=== PATIENT | male | born 1955 | race Caucasian/White ===

== ENCOUNTER 2017-12-10 17:19 | Emergency (ER) | payer OTHER, SELFPAY ==
[2017-12-10 17:29] VITALS: BP 141/92; PULSE 85; RESP 18; TEMP 36.9; O2SAT 98; BMI 55.3
--- NOTE | 2017-12-10 17:39 | DI.RAD.S_ITS ---
PROCEDURE: XR FINGER RT MIN 2V INDICATIONS: saw injury to right thumb TECHNIQUE: AP hand, 2 views of the right first finger(s) acquired. COMPARISON: None. FINDINGS: Bones: No definite fractures in the right first digit at the area of trauma. There are degenerative changes in the first CMC and IP joints. Soft tissues: Soft tissue defect about the right first IP joint.. IMPRESSION: No definite fractures. Soft tissue defect at the right first IP joint area of trauma. First digit degenerative change. Dictated by: Foreign Myers M.D. on 12/10/2017 at 18:04 Approved by: Foreign Myers M.D. on 12/10/2017 at 18:06
--- NOTE | 2017-12-10 18:40 | PC.NURSE ---
rt 1st digit laceration from power saw, distal cap refill <2 sec, reports unable to extend digit, bleeding controlled
[2017-12-10] MEDS: TET,DIPH,PERTUSS(ACELL),VAC/PF 0.5 ML SYRINGE IM (18:58)
--- NOTE | 2017-12-10 18:59 | ED.UPPEXIN ---
HPI - Extremity Injury (Upper) General Chief Complaint: Extremity Injury, Upper Stated Complaint: LACERATION RT THUMB Time Seen by Provider: 12/10/17 18:34 Source: patient Mode of arrival: ambulatory Limitations: no limitations History of Present Illness HPI narrative: Patient presents to the emergency department for evaluation of a right thumb laceration suffered this evening after opening a can of tomatoes and being cut by the lid on the tip of his thumb. It has bled significantly but he denies numbness, tingling or weakness. He has full range of motion. Tetanus needs to be updated. He denies other injury. He is right-handed MD complaint: injury to: right and finger Onset (ago): minute(s) Other injuries: none Handedness: right Place: home Severity: mild Relieving factors: none Exacerbating factors: none Context: laceration Associated symptoms: denies other symptoms Related Data Home Medications Medication Instructions Recorded Confirmed indomethacin 25 mg PO BIDCC #0 10/27/11 Previous Rx's Medication Instructions Recorded cephalexin [Keflex] 500 mg PO QID 7 Days #28 cap 12/10/17 Allergies Allergy/AdvReac Type Severity Reaction Status Date / Time No Known Drug Allergies Allergy Verified 12/10/17 17:34 Review of Systems Review of Systems All systems reviewed & are unremarkable except as noted in HPI and below Constitutional Denies chills, Denies fever(s), Denies lethargy and Denies weakness Eyes Denies change in vision, Denies eye discharge, Denies irritation and Denies loss of vision ENT Ears, Nose, Mouth, and Throat: Denies change in voice, Denies neck pain and Denies sore throat Cardiovascular Denies chest pain, Denies irregular heart rhythm, Denies lightheadedness, Denies palpitations, Denies dyspnea, Denies dyspnea on exertion and Denies orthopnea Respiratory Denies cough, Denies dyspnea, Denies dyspnea on exertion and Denies wheezing Gastrointestinal Gastrointestinal: Denies abdominal pain, Denies change in bowel habits, Denies diarrhea, Denies nausea and Denies vomiting Genitourinary Denies hematuria, Denies flank pain, Denies urinary incontinence and Denies urinary urgency Musculoskeletal Denies neck pain Integumentary/Breasts Denies pruritus, Denies erythema, Denies rash and Denies wounds Comments: Laceration Neurologic Denies confusion, Denies loss of vision and Denies weakness Psychiatric Denies anxiety, Denies confusion, Denies depression, Denies homicidal ideation and Denies suicidal ideation Endocrine Denies palpitations Hematologic/Lymphatic Denies easy bruising Allergic/Immunologic Denies wheezing PFSH Social History Smoking Status: Never smoker Exam Narrative Exam Narrative: Pleasant 62-year-old male clutching his right thumb, applying pressure. Mild distress Initial Vital Signs Initial Vital Signs: Vital Signs Temperature 98.5 F 12/10/17 17:29 Pulse Rate 85 12/10/17 17:29 Respiratory Rate 18 12/10/17 17:29 Blood Pressure 141/92 H 12/10/17 17:29 Pulse Oximetry 98 12/10/17 17:29 Const General: cooperative and well developed Nutritional Appearance: well nourished Orientation: alert, awake, oriented x3 and not confused HENKY Head: normocephalic and atraumatic Ears: external ears normal and TM's normal bilaterally Nose: external nose normal and No nasal discharge Face and sinus: sinuses nontender, face symmetric, no sinus tenderness and No dry mucous membranes Mouth: oral mucosae normal and moist mucous membranes Teeth and gingiva: dentition normal Throat: tonsils normal and uvula midline Resp Effort & Inspection: normal respiratory effort, able to speak in complete sentences, no respiratory distress and no use of accessory muscles Auscultation: clear to auscultation bilaterally, no rales, no rhonchi and no wheezes GI Inspection: non-distended Palpation: soft, no hepatosplenomegaly, No guarding, No pulsatile mass and No tender Auscultation: normal bowel sounds Skin Trauma: laceration Extrem Right upper extremity: hand Details: normal ROM of fingers and laceration (1.5 cm angled laceration with active bleeding) Procedures Laceration Repair Laceration 1: Site: hand (Right thumb) Side (If applicable): right Size (cm): 1.5 Description: flap Depth: simple, single layer Local Anesthetic: lidocaine 1% and with bicarb Amount of anesthesia used (mL): 2 Pre-repair: wound explored and irrigated extensively Skin layer closed with: nylon Size (cm): 5-0 Number of sutures: 3 Technique: simple, interrupted Course Orders Ordered: ED Orders 12/10/17 17:39 XR finger RT min 2V Stat Discontinued Medications Diphtheria/Tetanus/Acell Pertussis (Adacel) 0.5 ml IM .ONCE ONE Stop: 12/10/17 18:54 Last Admin: 12/10/17 18:58 Dose: 0.5 ml Vital Signs - 8 hr 12/10/17 20:34 Temperature 101.0 F H Pulse Rate 86 Respiratory Rate 16 Blood Pressure 141/89 H Pulse Oximetry 96 Discharge Plan Departure Patient Disposition: Home, Self-Care Clinical Impression: Laceration of right thumb, Extensor tendon laceration of finger with open wound Discharge Date/Time: 12/10/17 20:35 Interventions: ED Discharge Assessment Last Done: 12/10/17 20:34 Instructions: DI for Laceration Repair Activity Restrictions/Additional Instructions: Call [facility] Orthopedic office in the morning. Tell them your seen in the emergency department and have a laceration to the extensor tendon of your right thumb. Left thumb no Dr. Florian spoke with Dr. Welch and he wants you to call the office for close follow up and tendon repair. Your prescription for Keflex has been electronically transmitted to [facility] in [place] is at your request Prescriptions: New cephalexin [Keflex] 500 mg capsule 500 mg PO QID 7 Days Qty: 28 RF: 0 No Action indomethacin 25 MG capsule 25 mg PO BIDCC Qty: 0 RF: 0 Referrals: Sae Garces MD [Primary Care Provider] - Jordan Welch MD [Physician] -
[2017-12-10 20:34] VITALS: BP 141/89; PULSE 86; RESP 16; TEMP 38.3; O2SAT 96
== END 2017-12-10 20:35 | disposition home or self-care (01) ==
PROVIDERS: Emergency Provider Emergency Medicine; Family Provider Family Medicine; PCP Family Medicine
DX: S61.011A Laceration without foreign body of right thumb without damage to nail, initial encounter (principal); W26.8XXA Contact with other sharp object(s), not elsewhere classified, initial encounter
CPT/HCPCS: 12001; 29130; 73140; 90471; 99282; 99283; 90715

== ENCOUNTER 2017-12-11 11:07 | Day surgery (SDC) | payer OTHER, SELFPAY ==
[2017-12-11] VITALS (7 sets, daily range): BP systolic 104–143; BP diastolic 71–91; PULSE 55–68; RESP 10–18; TEMP 35.9–36.3; O2SAT 96–100; BMI 25.2
--- NOTE | 2017-12-11 12:41 | PM.HP.1 ---
History of Present Illness Date Patient Seen: 12/11/17 Time Patient Seen: 12:41 Chief complaint: [id number] Narrative: 62-year-old left hand dominant male with a right thumb injury. He was using a circular saw when it kicked back and lacerated the dorsum of his right thumb yesterday evening. He was seen in the emergency room and found to have an extensor tendon injury and sent for follow-up. He is not having very much pain at all. He is unable to extend his thumb. No fever or chills. 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 Patient History Medical History Hypertension (Acute) Family & Social History Family History: Reviewed 12/11/17 by Jordan Welch MD Social History: household members spouse Tobacco & Substance use: Smoking Status Never smoker alcohol intake frequency 0-2 drinks per day Substance Use Type does not use Meds Home Medications Medication Instructions Recorded Confirmed Type cephalexin [Keflex] 500 mg PO QID 7 Days #28 cap 12/10/17 Rx losartan 100 mg PO DAILY 12/11/17 12/11/17 History Allergies Allergy/AdvReac Type Severity Reaction Status Date / Time No Known Drug Allergies Allergy Verified 12/10/17 17:34 Review of Systems Constitutional Constitutional: Denies fatigue Cardiovascular Cardiovascular: Denies chest pain Respiratory Respiratory: Denies cough Gastrointestinal Gastrointestinal: Denies abdominal pain Genitourinary Genitourinary: Denies difficulty urinating Psychiatric Psychiatric: Denies anxiety Endocrine Endocrine: Denies fatigue Exam Vital Signs (past 8 hours): Vital Signs - 8 hr 12/11/17 11:47 Temperature 96.7 F L Pulse Rate 55 L Respiratory Rate 16 Blood Pressure 138/89 H Pulse Oximetry 99 Pulse Oximetry 99 Oxygen Delivery Method Room Air Resp Auscultation: clear to auscultation bilaterally Cardio Rate: regular rate Rhythm: regular rhythm Extrem Other: Right thumb shows a 1 cm transverse laceration across the IP joint. There is also small 5 mm laceration along the radial aspect of the thumb pad. Intact sensation to the tip with good capillary refill. He is unable to actively extend his IP joint. No erythema or induration or drainage. Two loose stitches in right now. Assessment & Plan Plan: Assessment/Plan Narrative: Plan is for repair of his right thumb EHL. Without it, he will not be able to actively extend his right thumb. I explained the surgical technique to him as well as recovery. Risks and benefits of surgery were discussed including but not limited to medical risks with heart attacks, stroke, , infection, bleeding, scarring, injury to nerves with pain or numbness, tendon rupture, stiffness, lag, loss of function, need for revision surgery. He understands and we will go ahead with this today. Time Spent With Patient Time with patient: 25 - 35 minutes
[2017-12-11] MEDS: LACTATED RINGERS 1,000 ML 42 ML IV (12:43)
--- NOTE | 2017-12-11 12:48 | P.HP_ITS ---
History of Present Illness Date Patient Seen: 12/11/17 Time Patient Seen: 12:41 Chief complaint: [id number] Narrative: 62-year-old left hand dominant male with a right thumb injury. He was using a circular saw when it kicked back and lacerated the dorsum of his right thumb yesterday evening. He was seen in the emergency room and found to have an extensor tendon injury and sent for follow-up. He is not having very much pain at all. He is unable to extend his thumb. No fever or chills. 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 Patient History Medical History Hypertension (Acute) Family & Social History Family History: Reviewed 12/11/17 by Jordan Welch MD Social History: household members spouse Tobacco & Substance use: Smoking Status Never smoker alcohol intake frequency 0-2 drinks per day Substance Use Type does not use Meds Home Medications Medication Instructions Recorded Confirmed Type cephalexin [Keflex] 500 mg PO QID 7 Days #28 cap 12/10/17 Rx losartan 100 mg PO DAILY 12/11/17 12/11/17 History Allergies Allergy/AdvReac Type Severity Reaction Status Date / Time No Known Drug Allergies Allergy Verified 12/10/17 17:34 Review of Systems Constitutional Constitutional: Denies fatigue Cardiovascular Cardiovascular: Denies chest pain Respiratory Respiratory: Denies cough Gastrointestinal Gastrointestinal: Denies abdominal pain Genitourinary Genitourinary: Denies difficulty urinating Psychiatric Psychiatric: Denies anxiety Endocrine Endocrine: Denies fatigue Exam Vital Signs (past 8 hours): Vital Signs - 8 hr 3 12/11/17 11:47 Temperature 96.7 F L Pulse Rate 55 L Respiratory Rate 16 Blood Pressure 138/89 H Pulse Oximetry 99 Pulse Oximetry 99 Oxygen Delivery Method Room Air Resp Auscultation: clear to auscultation bilaterally Cardio Rate: regular rate Rhythm: regular rhythm Extrem Other: Right thumb shows a 1 cm transverse laceration across the IP joint. There is also small 5 mm laceration along the radial aspect of the thumb pad. Intact sensation to the tip with good capillary refill. He is unable to actively extend his IP joint. No erythema or induration or drainage. Two loose stitches in right now. Assessment & Plan Plan: Assessment/Plan Narrative: Plan is for repair of his right thumb EHL. Without it, he will not be able to actively extend his right thumb. I explained the surgical technique to him as well as recovery. Risks and benefits of surgery were discussed including but not limited to medical risks with heart attacks, stroke, , infection, bleeding, scarring, injury to nerves with pain or numbness, tendon rupture, stiffness, lag, loss of function, need for revision surgery. He understands and we will go ahead with this today. Time Spent With Patient Time with patient: 25 - 35 minutes
--- NOTE | 2017-12-11 12:48 | PM.PREOP ---
Pre-operative Note Interval Note Pre-op Check: History & Physical exam performed today
--- NOTE | 2017-12-11 13:39 | P.OP_ITS ---
Operative Date/Time/Diagnoses - Date of procedure: 12/11/17 Time of procedure: 14:46 Pre-op diagnosis: Right thumb EHL tendon laceration Post-op diagnosis: other (open Right thumb IP joint) Procedure & Clinicians Procedure: Right thumb EHL tendon repair R thumb IP joint washout Same procedure as scheduled: Yes Indications: 62-year-old male with a laceration of his extensor tendon on the thumb. This felt that he would benefit from surgical intervention. Risks and benefits of surgery were discussed and appropriate consents were obtained. Surgeon: Jordan Welch Click Yes if Unassisted: Yes Anesthesia Type: MAC +/- and Local Operative Notes Findings: none Closure Type: primary Specimen(s): none sent Procedure in detail: Patient was brought to the operating room and attention was turned to the well-marked right arm. Time-out was performed. Preoperative antibiotics were given. A [place] block was performed for anesthetic. The right arm was prepped and draped in standard sterile fashion. We opened up the transverse laceration and extended it up and down on the sides. The skin was retracted and the wound was examined. The obvious tendon laceration was identified. The laceration went right through to the joint and there were some bony fragments where the saw had cut them on the dorsum of the proximal phalanx. This was an open joint and was debrided and copiously irrigated. We cleaned up the edges of the jagged tendon. There was enough proximally to be able to repair. This was repaired with a modified Lyn stitch using 2 stitches of 3-0 Ethibond. A running paratenon stitch was also placed with 5-0 PDS. This placed the thumb in an extended position without excessive tension across the repair. The skin edges were then reapproximated. Sterile dressing was placed. He was placed in a extension aluminum splint. He was then brought to the recovery room without complications. Complications: none Condition: stable Disposition: PACU Plan for aftercare: Outpatient. Follow up in 1 week and start with occupational therapy for standard extensor tendon repair protocol. Maintain thumb in extended position and splint.
[2017-12-11] MEDS: CEFAZOLIN 2 GM/100 ML FROZ.PIGGY IV (13:41)
--- NOTE | 2017-12-11 14:22 | SUR.OPER ---
Prone on padded OR bed, head in foam head support, gel chest rolls, gel pad under knees, pillow under lower legs, toes free of pressure, left arm secured on padded arm board at <90 degrees abduction. right arm on hand table. Safety belt at thigh.
[2017-12-11] MEDS: OXYCODONE/ACETAMINOPHEN 5/325 TABLET 1 TAB PO (15:08)
== END 2017-12-11 15:50 | disposition home or self-care (01) ==
PROVIDERS: Family Provider Family Medicine; PCP Family Medicine; Visit Provider Orthopaedic Surgery
PROC: (CPT 11012; principal; 2017-12-11 12:30)
DX: S66.221A Laceration of extensor muscle, fascia and tendon of right thumb at wrist and hand level, initial encounter (principal); I10 Essential (primary) hypertension; W31.2XXA Contact with powered woodworking and forming machines, initial encounter
CPT/HCPCS: 11012; 26418; J0690; J2250; J2704; J3010

== ENCOUNTER → 2018-05-27 08:32 | Outpatient (CLI) | payer OTHER, SELFPAY ==
[2018-05-27 10:14] LABS: Albumin Globulin Ratio 1.9 (1.0-2.8); Alkaline Phosphatase 160 U/L (38-126); Aspartate Aminotransferase 70 IU/L (17-59); BUN Creatinine Ratio 19.1 (6-22); Bilirubin Total 1.3 mg/dL (0.2-1.3); Blood Urea Nitrogen 21 mg/dL (9-20); Calcium 9.8 mg/dL (8.4-10.2); Carbon Dioxide 25 mmol/L (22-32); Cholesterol 253 mg/dL (140-199); Estimated Glomerular Filt Rate > 60.0 mL/min (>60); Globulin 2.6 g/dL (1.7-4.1); Glucose 112 mg/dL (80-110); HDL Cholesterol 49 mg/dL (40-60); LDL Cholesterol Calculated 154 mg/dL (<100); Total Protein 7.6 g/dL (6.3-8.2); Triglycerides 248 mg/dL (35-150)
[2018-05-27 10:21] LABS: Alanine Aminotransferase < 6 IU/L (21-72); HEMOLYSIS 172 (0-50)
[2018-05-27 10:34] LABS: Chloride 103 mmol/L (98-107); Potassium 5.1 mmol/L (3.4-5.1); Sodium 141 mmol/L (137-145)
[2018-05-27 10:43] LABS: Prostate Specific Antigen Scrn 1.96 ng/mL (0.1-4.0)
== END ==
PROVIDERS: Family Provider Anesthesiology; PCP Family Medicine; Visit Provider Family Medicine
DX: E29.1 Testicular hypofunction (principal); E78.5 Hyperlipidemia, unspecified; R53.83 Other fatigue; Z12.5 Encounter for screening for malignant neoplasm of prostate
CPT/HCPCS: 36415; 80053; 80061; 84403; G0103

== ENCOUNTER → 2021-05-26 09:41 | Outpatient (CLI) | payer MEDICARE, OTHER, SELFPAY ==
[2021-05-26 17:09] LABS: Uric Acid 7.1 mg/dL (3.5-8.5)
== END ==
PROVIDERS: Family Provider Anesthesiology; PCP Family Medicine; Referring Provider Family Medicine; Visit Provider Family Medicine
DX: M10.9 Gout, unspecified (principal)
CPT/HCPCS: 36415; 84550

== ENCOUNTER 2021-12-26 11:28 | Inpatient (IN) | payer MEDICARE, OTHER, SELFPAY ==
[2021-12-26] VITALS (7 sets, daily range): BP systolic 140–184; BP diastolic 95–107; PULSE 58–66; RESP 16–18; TEMP 36.9–37.1; O2SAT 95–99; BMI 28.1
--- NOTE | 2021-12-26 11:42 | DI.CT.S_ITS ---
PROCEDURE: CT HEAD/BRAIN WO CON INDICATIONS: sent by optho, loss of L peripheral vision x 5 days TECHNIQUE: Noncontrast 4.5 mm thick angled axial sections acquired from the foramen magnum to the vertex, with coronal and sagittal reformats. For radiation dose reduction, the following was used: automated exposure control, adjustment of mA and/or kV according to patient size. COMPARISON: None. FINDINGS: Image quality: Excellent. CSF spaces: Basal cisterns are patent. No extra-axial fluid collections. The ventricles are symmetric in size and shape. Brain: No intracranial bleeds or masses. There is a subacute infarct within the right medial occipital lobe measuring roughly 45 mm anteroposterior by 40 mm transverse by 25 mm craniocaudal. There is cerebral volume loss for age, with resultant ventricular and sulcal prominence. There are periventricular and deep white matter chronic small vessel ischemic changes. There is intracranial internal carotid artery atherosclerosis. Skull and face: Calvarium and visualized facial bones appear intact, without suspicious lesions. Sinuses: Visualized sinuses and mastoids are clear. IMPRESSION: 1. Subacute right occipital lobe infarct. 2. No acute intracranial abnormality. Dictated by: Evelio Robles M.D. on 12/26/2021 at 12:11 Approved by: Evelio Robles M.D. on 12/26/2021 at 12:13
--- NOTE | 2021-12-26 12:13 | DI.MRI.S_ITS ---
PROCEDURE: MR HEAD/BRAIN WO/W CON INDICATIONS: peripheral visual loss x5days TECHNIQUE: Noncontrast axial T1 spin echo, axial T2 fast spin echo, sagittal and axial FLAIR, coronal T2 fast spin echo, axial gradient echo, axial diffusion and ADC through the brain. After the administration of contrast, axial and coronal and sagittal 3D VIBE or T1 spin echo with fat saturation through the brain. COMPARISON: [facility], CT, CT HEAD/BRAIN WO CON, 12/26/2021, 11:59. FINDINGS: There is a pattern of restricted diffusion indicating a late acute or early subacute right occipital lobe infarct with associated mild cytotoxic edema producing regional sulcal effacement but no significant mass effect otherwise. No additional restricted diffusion. No unexpected intracranial susceptibility or enhancement. The major intracranial vascular flow-related signal voids are maintained. There is a mildly dilated appearance of the right posterior cerebral artery vasculature likely hyperemic luxury reperfusion. There is no focal right MAIL DELIVERER occlusion identified, although the study was not tailored for angiographic evaluation. Paranasal sinuses and mastoid air cells are predominantly clear. Orbital structures normal. IMPRESSION: Late acute or early subacute right occipital lobe infarct. When clinically appropriate, a CT angiogram of the head neck would be advised to evaluate the cervical and intracranial arterial vasculature. Dictated by: Neo Woodson M.D. on 12/26/2021 at 13:31 Approved by: Neo Woodson M.D. on 12/26/2021 at 13:37
--- NOTE | 2021-12-26 13:06 | ED.NEUROSD ---
HPI - Neuro Symptoms/Deficit General Chief Complaint: Neuro Symptoms/Deficit Stated Complaint: Stroke work up- ref Dr Olsen Time Seen by Provider: 12/26/21 12:13 History of Present Illness HPI Narrative: 66-year-old retired [employer] with mild hyperlipidemia currently treated for high blood pressure presents from his ophthalmology office with complaints of left sided peripheral vision loss. He had been in [place] and was at a conference when he noticed that his vision seemed a bit off and he was unable to see to the side. After 3-4 days he was noticing some blurry vision in that eye. He did not have any dizziness, palpitation, chest pain, headache, orthopnea, dyspnea. No additional weakness or paresthesia. No nausea or vomiting. Over the ensuing 5 days he saw Ophthalmology, a retinal ophthalmology specialist and eventually was sent to the emergency department with concerns for stroke 5 days after symptoms started. He complains of mild left-sided headache, decreased vision on the left side and decreased peripheral field vision on the left side. Formal peripheral field testing reveals that is bilateral peripheral grant but patient does not notice the abnormality to the right. He has had no difficulty with swallowing, talking, eating or speech. On Anticoagulants: No Related Data Home Medications Medication Instructions Recorded Confirmed losartan 100 mg tablet 100 mg PO DAILY 12/11/17 12/27/21 Previous Rx's Medication Instructions Recorded hydrocodone 5 mg-acetaminophen 325 1 tab PO Q4H PRN pain #7 tabs 12/11/17 mg tablet ([place]) Allergies Allergy/AdvReac Type Severity Reaction Status Date / Time No Known Drug Allergies Allergy Verified 12/10/17 17:34 Review of Systems Review of Systems Narrative: Remainder of complete review of systems is otherwise unremarkable except for that included in the HPI. Hematologic/Lymphatic On Anticoagulants: No Patient History Medical History Hyperlipidemia Hypertension Stroke Social History household members: spouse Smoking Status: Never smoker alcohol intake: current Smoking Status: Never smoker alcohol intake frequency: 0-2 drinks per day Substance Use Type: does not use Exam Initial Vital Signs Initial Vital Signs: Vital Signs Temperature 98.7 F 12/26/21 11:38 Pulse Rate 66 12/26/21 11:38 Respiratory Rate 16 12/26/21 11:38 Blood Pressure 184/97 H 12/26/21 11:38 Pulse Oximetry 99 12/26/21 11:38 Oxygen Delivery Method 12/26/21 11:38 General: Healthy appearing, in no acute distress. Able to give a complete and coherent history. Well-nourished well-developed HEENT: Moist mucous membranes, normal sclera with reactive pupils, Neck: No JVD, supple Respiratory: Lungs are clear to auscultation, no wheezing no rales no rhonchi. Full and symmetrical air movement Cardiac: Regular rate and rhythm no murmurs no bruits Abdomen: Soft, nontender, good bowel tones, no flank pain Skin: Warm and dry, no rashes Neurologic: Grossly neurologically intact with no obvious asymmetries or abnormalities. Minor peripheral vision loss left side. NIH score =1 Extremities: No trauma, well perfused Psych: Cooperative, appropriate insight and affect Course Orders Ordered: Acetaminophen (Acetaminophen 325 Mg Tablet) 650 mg PO Q6HR [facility] Last Admin: 12/27/21 06:09 Dose: Not Given Documented By: Admin: 12/27/21 00:29 Dose: 650 mg Documented By: DONTA Al Hydrox/Mg Hydrox/Simethicone (Mag Hydrox/Alum/Simeth 30 Ml Udc) 30 ml PO Q6HR PRN PRN Reason: Dyspepsia Aspirin (Aspirin Ec 325 Mg Tablet) 325 mg PO DAILY [facility] Enoxaparin Sodium (Enoxaparin 40 Mg/0.4 Ml Syringe) 40 mg SUBCUT DAILY [facility] Losartan Potassium (Losartan 50 Mg Tablet) 100 mg PO DAILY [facility] Magnesium Hydroxide (Magnesium Hydroxide 30 Ml Udc) 30 ml PO DAILY PRN PRN Reason: Constipation Naloxone HCl (Naloxone 0.4 Mg/Ml Vial) 0.2 mg IV Q2MIN PRN PRN Reason: Opiate Reversal Discontinued Medications Aspirin (Aspirin 81 Mg Chew Tab) 324 mg PO NOW ONE Stop: 12/26/21 15:21 Last Admin: 12/26/21 15:30 Dose: 324 mg Documented By: SORIN Losartan Potassium (Losartan 50 Mg Tablet) 100 mg PO NOW ONE Stop: 12/26/21 18:30 Last Admin: 12/27/21 00:44 Dose: Not Given Documented By: DONTA Vital Signs Vital signs: Vital Signs - 8 hr 12/26/21 11:38 Temperature 98.7 F Pulse Rate 66 Respiratory Rate 16 Blood Pressure 184/97 H Pulse Oximetry 99 Oxygen Delivery Method Room Air MDM - Neuro Symptoms/Deficit Lab Data Result diagrams: 12/26/21 13:50 12/27/21 05:18 Labs: Lab Results 12/26/21 12/26/21 12/26/21 Range/Units 13:50 13:50 13:50 WBC 4.0 L (4.5-11.0) X10^3/uL RBC 4.80 (4.5-5.9) X10^6/uL Hgb 15.0 (13.5-17.5) g/dL Hct 43.5 (41-53) % MCV 90.6 (80-100) fL MCH 31.2 (26-34) PG MCHC 34.5 (30-36) % RDW 13.8 (11.6-14.8) % Plt Count 162 (150-400) X10^3/uL Neut % (Auto) 64.8 (50-75) % Lymph % (Auto) 23.0 L (25-40) % Mower % (Auto) 9.0 (3-14) % Eos % (Auto) 2.5 (2-4) % Baso % (Auto) 0.7 (0-2) % Neut # (Auto) 2600 (3023-4402) /uL Lymph # (Auto) 900 L (0771-3550) /uL Mower # (Auto) 400 (0-900) /uL Eos # (Auto) 100 (0-450) /uL Baso # (Auto) 0 (0-100) /uL PT 10.3 (10.1-12.7) SECONDS INR 0.9 (0.9-1.3) APTT 28 (26.4-36.2) SECONDS Sodium 140 (137-145) mmol/L Potassium 4.3 (3.4-5.1) mmol/L Chloride 105 (98-107) mmol/L Carbon Dioxide 28 (22-32) mmol/L BUN 17 (9-20) mg/dL Creatinine 1.19 (0.66-1.25) mg/dL Estimated GFR > 60 (>60) mL/min BUN/Creatinine Ratio 14.3 (6-22) Glucose 114 H (80-110) mg/dL Hemoglobin A1c (4.0-6.0) % Calcium 9.2 (8.4-10.2) mg/dL Magnesium 2.1 (1.6-2.3) mg/dL Total Bilirubin 0.8 (0.2-1.3) mg/dL AST 35 (17-59) IU/L ALT 38 (<50) IU/L Alkaline Phosphatase 49 (38-126) U/L Total Creatine Kinase 114 (55-170) U/L CK-MB (CK-2) 1.93 (<2.37) ng/mL CK-MB (CK-2) Rel Index 1.7 (1.5-5.0) % Troponin I < 0.012 (0.01-0.034) ng/mL Total Protein 7.5 (6.3-8.2) g/dL Albumin 4.7 (3.5-5.0) g/dL Globulin 2.8 (1.7-4.1) g/dL Albumin/Globulin Ratio 1.7 (1.0-2.8) Triglycerides (35-150) mg/dL Cholesterol (140-199) mg/dL LDL Cholesterol, Calc (<100) mg/dL HDL Cholesterol (40-60) mg/dL 12/26/21 12/26/21 Range/Units 13:50 13:50 WBC (4.5-11.0) X10^3/uL RBC (4.5-5.9) X10^6/uL Hgb (13.5-17.5) g/dL Hct (41-53) % MCV (80-100) fL MCH (26-34) PG MCHC (30-36) % RDW (11.6-14.8) % Plt Count (150-400) X10^3/uL Neut % (Auto) (50-75) % Lymph % (Auto) (25-40) % Mower % (Auto) (3-14) % Eos % (Auto) (2-4) % Baso % (Auto) (0-2) % Neut # (Auto) (9949-0148) /uL Lymph # (Auto) (9801-0330) /uL Mower # (Auto) (0-900) /uL Eos # (Auto) (0-450) /uL Baso # (Auto) (0-100) /uL PT (10.1-12.7) SECONDS INR (0.9-1.3) APTT (26.4-36.2) SECONDS Sodium (137-145) mmol/L Potassium (3.4-5.1) mmol/L Chloride (98-107) mmol/L Carbon Dioxide (22-32) mmol/L BUN (9-20) mg/dL Creatinine (0.66-1.25) mg/dL Estimated GFR (>60) mL/min BUN/Creatinine Ratio (6-22) Glucose (80-110) mg/dL Hemoglobin A1c 7.4 H (4.0-6.0) % Calcium (8.4-10.2) mg/dL Magnesium (1.6-2.3) mg/dL Total Bilirubin (0.2-1.3) mg/dL AST (17-59) IU/L ALT (<50) IU/L Alkaline Phosphatase (38-126) U/L Total Creatine Kinase (55-170) U/L CK-MB (CK-2) (<2.37) ng/mL CK-MB (CK-2) Rel Index (1.5-5.0) % Troponin I (0.01-0.034) ng/mL Total Protein (6.3-8.2) g/dL Albumin (3.5-5.0) g/dL Globulin (1.7-4.1) g/dL Albumin/Globulin Ratio (1.0-2.8) Triglycerides 216 H (35-150) mg/dL Cholesterol 284 H (140-199) mg/dL LDL Cholesterol, Calc 198 H (<100) mg/dL HDL Cholesterol 43 (40-60) mg/dL Imaging Data MRI brain: Radiologist's Impression: FINDINGS:? ? There is a pattern of restricted diffusion indicating a late acute or early subacute right occipital lobe infarct with associated mild cytotoxic edema producing regional sulcal effacement but no significant mass effect otherwise.? No additional restricted diffusion.? No unexpected intracranial susceptibility or enhancement. ? The major intracranial vascular flow-related signal voids are maintained.? There is a mildly dilated appearance of the right posterior cerebral artery vasculature likely hyperemic luxury reperfusion.? There is no focal right CASE MANAGEMENT DIRECTOR occlusion identified, although the study was not tailored for angiographic evaluation. ? Paranasal sinuses and mastoid air cells are predominantly clear.? Orbital structures normal. ? IMPRESSION:? Late acute or early subacute right occipital lobe infarct.? When clinically appropriate, a CT angiogram of the head neck would be advised to evaluate the cervical and intracranial arterial vasculature.? ? Dictated by: Neo Woodson M.D. on 12/26/2021 at 13:31? ?? CT scan - head: Radiologist's Impression: FINDINGS:? Image quality:? Excellent.? ? CSF spaces:? Basal cisterns are patent.? No extra-axial fluid collections.? The ventricles are symmetric in size and shape.? ? Brain:? No intracranial bleeds or masses.? There is a subacute infarct within the right medial occipital lobe measuring roughly 45 mm anteroposterior by 40 mm transverse by 25 mm craniocaudal.? There is cerebral volume loss for age, with resultant ventricular and sulcal prominence.? There are periventricular and deep white matter chronic small vessel ischemic changes.? There is intracranial internal carotid artery atherosclerosis.? ? Skull and face:? Calvarium and visualized facial bones appear intact, without suspicious lesions.? ? Sinuses:? Visualized sinuses and mastoids are clear.? ? IMPRESSION:? 1. Subacute right occipital lobe infarct. 2. No acute intracranial abnormality.? ? ? Dictated by: Evelio Robles M.D. on 12/26/2021 at 12:11? ?? CT angiogram head neck: Radiologist's Impression: FINDINGS:? ? HEAD CT ANGIOGRAPHY:? Anterior circulation:? Atherosclerotic plaque and calcification in the carotid siphons without hemodynamically significant stenosis.? Normal branch configuration of the anterior and middle cerebral arteries.? No branch occlusion or hemodynamically significant in the anterior or middle cerebral arteries. ? Posterior circulation:? Atherosclerotic plaque and calcification are present in the V4 branches bilaterally.? There is no focal hemodynamically significant stenosis.? Cerebellar arteries opacify normally. ? NECK CT ANGIOGRAPHY:? Carotid system:? The great vessels demonstrate a conventional anatomy as they arise from the aortic arch.? The origins of the common carotid arteries appear patent.? The common carotid arteries demonstrate normal caliber and courses.? The bifurcation regions are both widely patent.? The internal carotid arteries demonstrate normal calibers and courses. ? Posterior circulation:? The origins of the vertebral arteries both appear widely patent.? The more superior extracranial portions of both vertebral arteries also demonstrate normal courses and calibers.? They join to form a normal appearing basilar artery.? No high-grade narrowing of the right posterior cerebral artery beginning at the origin and persisting through the P2 segment.? There is delayed and diminished opacification of the distal P3 and P4 branches.? Posterior communicating arteries are patent. ? Soft tissues:? Visualized neck soft tissues demonstrate no suspicious abnormalities.? ? Bones:? No suspicious bony lesions.? Visualized cervical spine appears normally aligned.? IMPRESSION:? ? High-grade stenosis of the right P1 and P2 segments with diminished and delayed opacification in most of the right CASE MANAGEMENT DIRECTOR territory. ? Mild multifocal atherosclerotic narrowing of the bilateral V4 segments. ? Mild atherosclerotic calcifications in the carotid bifurcations without hemodynamically significant stenosis. ? Any quantitative measurements of stenosis were performed using NASCET criteria.? ? ? Dictated by: Neo Woodson M.D. on 12/26/2021 at 16:03? ?? 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 scan and MRI for stroke. Five days after initial symptoms, he is not a tPA candidate CT and MRI show late acute or early subacute right occipital lobe infarct. CTA shows high-grade stenosis of the right P1 and P2 segments with diminished and delayed opacification and most of the right CASE MANAGEMENT DIRECTOR territory. 630pm Telestroke consult. Dr Frederick. No DI intervetion at this time with primary issue being intracranial atherosclerosis, but not a heavy burder Recommends: ASA 325 daily High intensity statin, atorvastatin 80 Echo with bubble study goal BP trend down to less 130/80 over the next several days. check a1c Care is reviewed with Dr Shelby Stroke Core Measures Exclusion Criteria TPA in CVA: Symptom Onset >3 or 4.5 Hours Discharge Plan Departure Patient Disposition: Admitted As Inpatient Clinical Impression: Cerebrovascular accident, Hypertension Admit Date/Time: 12/26/21 13:51 Admit Provider: Chandana Shelby
[2021-12-26 13:56] LABS: Add Manual Diff / Slide Review NO; Basophils Absolute Auto 0 /uL (0-100); Basophils Percent Auto 0.7 % (0-2); Eosinophils Absolute Auto 100 /uL (0-450); Eosinophils Percent Auto 2.5 % (2-4); Hematocrit 43.5 % (41-53); Lymphocytes Absolute Auto 900 /uL (1100-4500); Mean Corpuscular HGB Conc 34.5 % (30-36); Mean Corpuscular Hemoglobin 31.2 PG (26-34); Mean Corpuscular Volume 90.6 fL (80-100); Monocytes Absolute Auto 400 /uL (0-900); Neutrophils Absolute Auto 2600 /uL (1500-7000); Neutrophils Percent Auto 64.8 % (50-75); Platelet Count 162 X10^3/uL (150-400); Red Cell Distribution Width 13.8 % (11.6-14.8)
[2021-12-26 14:05] LABS: INR 0.9 (0.9-1.3); Prothrombin Time 10.3 SECONDS (10.1-12.7)
[2021-12-26 14:08] LABS: PTT Partial Thromboplastin Tim 28 SECONDS (26.4-36.2)
[2021-12-26 14:10] LABS: Alanine Aminotransferase 38 IU/L (<50); Albumin 4.7 g/dL (3.5-5.0); Albumin Globulin Ratio 1.7 (1.0-2.8); Alkaline Phosphatase 49 U/L (38-126); Aspartate Aminotransferase 35 IU/L (17-59); BUN Creatinine Ratio 14.3 (6-22); Bilirubin Total 0.8 mg/dL (0.2-1.3); Blood Urea Nitrogen 17 mg/dL (9-20); Calcium 9.2 mg/dL (8.4-10.2); Carbon Dioxide 28 mmol/L (22-32); Chloride 105 mmol/L (98-107); Creatine Kinase 114 U/L (55-170); Estimated Glomerular Filt Rate > 60 mL/min (>60); Globulin 2.8 g/dL (1.7-4.1); Glucose 114 mg/dL (80-110); Magnesium 2.1 mg/dL (1.6-2.3); Potassium 4.3 mmol/L (3.4-5.1); Sodium 140 mmol/L (137-145); Total Protein 7.5 g/dL (6.3-8.2)
[2021-12-26 14:22] LABS: Troponin I < 0.012 ng/mL (0.01-0.034)
[2021-12-26 14:25] LABS: CKMB % Relative Index 1.7 % (1.5-5.0); Creatine Kinase MB 1.93 ng/mL (<2.37); HEMOLYSIS 27 (0-50)
[2021-12-26 14:30] LABS: COVID19 -Nasal RAPID Negative (Negative)
--- NOTE | 2021-12-26 14:54 | DI.CT.S_ITS ---
PROCEDURE: CT ANGIO HEAD AND NECK INDICATIONS: stroke TECHNIQUE: After the administration of intravenous contrast, 1 mm thick sections acquired from the aortic arch through the [place] of [place]. Post-contrast 4.5 mm thick sections then re-acquired from the foramen magnum to the vertex. 3-dimensional uenbkrp-xmrjlipmu-etvemaqwjz (MIP) and/or volume rendering reformats were acquired of the central intracranial vasculature and neck separately. For radiation dose reduction, the following was used: automated exposure control, adjustment of mA and/or kV according to patient size. COMPARISON: [facility], , MR HEAD/BRAIN WO/W CON, 12/26/2021, 12:27. FINDINGS: HEAD CT ANGIOGRAPHY: Anterior circulation: Atherosclerotic plaque and calcification in the carotid siphons without hemodynamically significant stenosis. Normal branch configuration of the anterior and middle cerebral arteries. No branch occlusion or hemodynamically significant in the anterior or middle cerebral arteries. Posterior circulation: Atherosclerotic plaque and calcification are present in the V4 branches bilaterally. There is no focal hemodynamically significant stenosis. Cerebellar arteries opacify normally. NECK CT ANGIOGRAPHY: Carotid system: The great vessels demonstrate a conventional anatomy as they arise from the aortic arch. The origins of the common carotid arteries appear patent. The common carotid arteries demonstrate normal caliber and courses. The bifurcation regions are both widely patent. The internal carotid arteries demonstrate normal calibers and courses. Posterior circulation: The origins of the vertebral arteries both appear widely patent. The more superior extracranial portions of both vertebral arteries also demonstrate normal courses and calibers. They join to form a normal appearing basilar artery. No high-grade narrowing of the right posterior cerebral artery beginning at the origin and persisting through the P2 segment. There is delayed and diminished opacification of the distal P3 and P4 branches. Posterior communicating arteries are patent. Soft tissues: Visualized neck soft tissues demonstrate no suspicious abnormalities. Bones: No suspicious bony lesions. Visualized cervical spine appears normally aligned. IMPRESSION: High-grade stenosis of the right P1 and P2 segments with diminished and delayed opacification in most of the right LINE ANALYST territory. Mild multifocal atherosclerotic narrowing of the bilateral V4 segments. Mild atherosclerotic calcifications in the carotid bifurcations without hemodynamically significant stenosis. Any quantitative measurements of stenosis were performed using NASCET criteria. Dictated by: Neo Woodson M.D. on 12/26/2021 at 16:03 Approved by: Neo Woodson M.D. on 12/26/2021 at 16:10
[2021-12-26 15:29] LABS: Appearance Urine UA CLEAR; Bilirubin Urine UA NEGATIVE (NEGATIVE); Color Urine UA YELLOW; Glucose Urine UA NEGATIVE (Negative); Ketones Urine UA NEGATIVE (NEGATIVE); Leukocyte Esterase Urine UA TRACE (NEGATIVE); Nitrite Urine UA NEGATIVE (Negative); Occult Blood Urine UA NEGATIVE (Negative); Protein Urine UA TRACE (Negative); Specific Gravity Urine UA 1.015 (1.000-1.035); Urobilinogen Urine UA 0.2 E.U./dL (0.2)
[2021-12-26] MEDS: ASPIRIN 81 MG CHEW TAB 324 MG PO (15:30)
[2021-12-26 15:34] LABS: UR Morphine/Opiate cutoff 300 Negative (Negative); Ur Creatinine Normal (Normal); Ur Specific Gravity Normal (Normal); Urine Amphetamines Negative (Negative); Urine Barbiturates Negative (Negative); Urine Benzodiazepines Negative (Negative); Urine Cocaine Negative (Negative); Urine MDMA Negative (Negative); Urine Methadone Negative (Negative); Urine Methamphetamines Negative (Negative); Urine Oxycodone Negative (Negative); Urine Phencyclidine Negative (Negative); Urine Tetrahydrocannabinol Negative (Negative); Urine Tricyclic Antidepressant Negative (Negative); Urine pH Normal (Normal)
[2021-12-26 15:40] LABS: Bacteria Urine None Seen; Culture Indicated Urine Cult Not Indicated; RBC Urine None Seen (0-5/HPF); Squamous Epithelial Cell Urine None Seen (0-5/HPF); WBC Urine 0-1/HPF (0-5/HPF)
[2021-12-26 18:55] LABS: Cholesterol 284 mg/dL (140-199); HDL Cholesterol 43 mg/dL (40-60); LDL Cholesterol Calculated 198 mg/dL (<100); Triglycerides 216 mg/dL (35-150)
[2021-12-26 19:00] LABS: Hemoglobin A1C% w Est Avg Glu 7.4 % (4.0-6.0)
--- NOTE | 2021-12-26 19:50 | PM.HP.1 ---
History of Present Illness History of Present Illness Date Patient Seen: 12/26/21 Time Patient Seen: 19:50 Date of Onset of Symptoms: 12/21/21 Chief complaint: Stroke work up- ref Dr Olsen Narrative: Patient is a 66-year-old patient of Dr. Mccrary who presents with decreased vision left eye. Patient has a history of hypertension but otherwise unremarkable past medical history. Apparently he was in [place] visiting his new grand son and noticed that he was dizzy and lightheaded. He went out of the meeting he was in and sat down and it passed. He had no headaches or chest pain or palpitations or other changes. Patient noticed over the course of the next few hours that the left upper outer area of his vision was different. He does could sees well. But did not think much of it at that time. He felt well. Continued to do well and then was seen by his trimming operator partner who told whom there is thing looked okay did not appear to be acute and then was sent to Dr. Olsen who saw him today was worried about a stroke referred to the emergency room. Patient is otherwise had blood pressure control in the 130-140 over 80-90. He has had no palpitations. He has had a slight headache feels like it is like my I will not completely focus in he feels like it has that kind of a headache but otherwise has been feeling well. No other changes. Past medical history significant mostly for hypertension. Hyperlipidemia. Patient was on cholesterol medicine in the past and it bothered his knees so he quit it. Past surgical history negative. Social history lives with . 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 Habits no smoke occasionally alcohol. Family history. Dad bleeding ulcer and some type of congestive heart failure, mom early of unknown cause 47 years of age. Five siblings all healthy except for 1 with brain injury at . Patient History Medical History Hyperlipidemia Hypertension Stroke Family & Social History Social History: household members spouse Safety & Behavioral: Feels Safe in Current Yes Environment Been Physically Hurt or No Threatened By a Person Tobacco & Substance use: Smoking Status Never smoker alcohol intake frequency 0-2 drinks per day Substance Use Type does not use Meds Home Medications and Allergies Home Medications Medication Instructions Recorded Confirmed Type hydrocodone 5 mg-acetaminophen 325 1 tab PO Q4H PRN pain #7 tabs 12/11/17 Rx mg tablet ([place]) losartan 100 mg tablet 100 mg PO DAILY 12/11/17 12/11/17 History Allergies Allergy/AdvReac Type Severity Reaction Status Date / Time No Known Drug Allergies Allergy Verified 12/10/17 17:34 Exam Vital Signs (past 8 hours): - 12/26/21 14:34 12/26/21 14:34 12/26/21 14:34 Temperature 98.4 F Pulse Rate 62 64 Respiratory Rate 18 Blood Pressure 174/97 H 174/97 H Pulse Oximetry 97 97 Oxygen Delivery Method Room Air 12/26/21 14:37 12/26/21 15:04 12/26/21 16:00 Temperature Pulse Rate 63 65 Respiratory Rate Blood Pressure 179/107 H Pulse Oximetry 96 97 Oxygen Delivery Method 12/26/21 16:30 Temperature Pulse Rate 58 L Respiratory Rate Blood Pressure Pulse Oximetry 95 Oxygen Delivery Method Oxygen Delivery Method Room Air Narrative Exam Narrative: Alert middle-aged male in no acute distress HEENT exam is unremarkable neck supple without adenopathy JVD or bruits. Lungs are clear heart regular rate and rhythm abdomen is soft positive bowel sounds nontender. Extremities without cyanosis clubbing edema. Neurologic exam is completely normal cranial nerves motor 5/5 reflex 2+ and symmetric sensation intact. He does have a visual defect in left outer area no other changes Objective Labs Result Diagrams: 12/26/21 13:50 12/26/21 13:50 Labs: Laboratory Results - last 24 hr 12/26/21 12/26/21 12/26/21 13:50 13:50 13:50 WBC 4.0 L RBC 4.80 Hgb 15.0 Hct 43.5 MCV 90.6 MCH 31.2 MCHC 34.5 RDW 13.8 Plt Count 162 Neut % (Auto) 64.8 Lymph % (Auto) 23.0 L [place] % (Auto) 9.0 Eos % (Auto) 2.5 Baso % (Auto) 0.7 Neut # (Auto) 2600 Lymph # (Auto) 900 L [place] # (Auto) 400 Eos # (Auto) 100 Baso # (Auto) 0 PT 10.3 INR 0.9 APTT 28 Sodium 140 Potassium 4.3 Chloride 105 Carbon Dioxide 28 BUN 17 Creatinine 1.19 Estimated GFR > 60 BUN/Creatinine Ratio 14.3 Glucose 114 H Hemoglobin A1c Calcium 9.2 Magnesium 2.1 Total Bilirubin 0.8 AST 35 ALT 38 Alkaline Phosphatase 49 Total Creatine Kinase 114 CK-MB (CK-2) 1.93 CK-MB (CK-2) Rel Index 1.7 Troponin I < 0.012 Total Protein 7.5 Albumin 4.7 Globulin 2.8 Albumin/Globulin Ratio 1.7 Triglycerides Cholesterol LDL Cholesterol, Calc HDL Cholesterol Urine Color Urine Appearance Urine pH Ur Specific [place] Urine Protein Urine Glucose (UA) Urine Ketones Urine Occult Blood Urine Nitrate Urine Bilirubin Urine Urobilinogen Ur Leukocyte Esterase Urine RBC Urine WBC Ur Squamous Epith Cells Urine Bacteria Ur Culture Indicated? U Opiates 300ng/mL cut Ur Oxycodone Screen Urine Methadone Screen Ur Barbiturates Screen U Tricyclic Antidepress Ur Phencyclidine Scrn Ur Amphetamines Screen U Methamphetamines Scrn Ur MDMA Scrn (Ecstasy) U Benzodiazepines Scrn Urine Cocaine Screen U Marijuana (THC) Screen SARS-CoV-2 (PCR) 12/26/21 12/26/21 12/26/21 13:50 13:50 14:03 WBC RBC Hgb Hct MCV MCH MCHC RDW Plt Count Neut % (Auto) Lymph % (Auto) [place] % (Auto) Eos % (Auto) Baso % (Auto) Neut # (Auto) Lymph # (Auto) [place] # (Auto) Eos # (Auto) Baso # (Auto) PT INR APTT Sodium Potassium Chloride Carbon Dioxide BUN Creatinine Estimated GFR BUN/Creatinine Ratio Glucose Hemoglobin A1c 7.4 H Calcium Magnesium Total Bilirubin AST ALT Alkaline Phosphatase Total Creatine Kinase CK-MB (CK-2) CK-MB (CK-2) Rel Index Troponin I Total Protein Albumin Globulin Albumin/Globulin Ratio Triglycerides 216 H Cholesterol 284 H LDL Cholesterol, Calc 198 H HDL Cholesterol 43 Urine Color Urine Appearance Urine pH Ur Specific [place] Urine Protein Urine Glucose (UA) Urine Ketones Urine Occult Blood Urine Nitrate Urine Bilirubin Urine Urobilinogen Ur Leukocyte Esterase Urine RBC Urine WBC Ur Squamous Epith Cells Urine Bacteria Ur Culture Indicated? U Opiates 300ng/mL cut Ur Oxycodone Screen Urine Methadone Screen Ur Barbiturates Screen U Tricyclic Antidepress Ur Phencyclidine Scrn Ur Amphetamines Screen U Methamphetamines Scrn Ur MDMA Scrn (Ecstasy) U Benzodiazepines Scrn Urine Cocaine Screen U Marijuana (THC) Screen SARS-CoV-2 (PCR) Negative 12/26/21 12/26/21 14:55 14:55 WBC RBC Hgb Hct MCV MCH MCHC RDW Plt Count Neut % (Auto) Lymph % (Auto) [place] % (Auto) Eos % (Auto) Baso % (Auto) Neut # (Auto) Lymph # (Auto) [place] # (Auto) Eos # (Auto) Baso # (Auto) PT INR APTT Sodium Potassium Chloride Carbon Dioxide BUN Creatinine Estimated GFR BUN/Creatinine Ratio Glucose Hemoglobin A1c Calcium Magnesium Total Bilirubin AST ALT Alkaline Phosphatase Total Creatine Kinase CK-MB (CK-2) CK-MB (CK-2) Rel Index Troponin I Total Protein Albumin Globulin Albumin/Globulin Ratio Triglycerides Cholesterol LDL Cholesterol, Calc HDL Cholesterol Urine Color Yellow Urine Appearance Clear Urine pH 6.0 Ur Specific [place] 1.015 Urine Protein Trace H Urine Glucose (UA) Negative Urine Ketones Negative Urine Occult Blood Negative Urine Nitrate Negative Urine Bilirubin Negative Urine Urobilinogen 0.2 Ur Leukocyte Esterase Trace H Urine RBC None seen Urine WBC 0-1/hpf Ur Squamous Epith Cells None seen Urine Bacteria None seen Ur Culture Indicated? Cult not indicated U Opiates 300ng/mL cut Negative Ur Oxycodone Screen Negative Urine Methadone Screen Negative Ur Barbiturates Screen Negative U Tricyclic Antidepress Negative Ur Phencyclidine Scrn Negative Ur Amphetamines Screen Negative U Methamphetamines Scrn Negative Ur MDMA Scrn (Ecstasy) Negative U Benzodiazepines Scrn Negative Urine Cocaine Screen Negative U Marijuana (THC) Screen Negative SARS-CoV-2 (PCR) Assessment & Plan Assessment & Plan narrative: CVA. Discussed with the emergency room the discussed with tele stroke. Does not believe there is any definitive intervention at this time. Recommended aspirin which we will began high-intensity statin which will need to figure out which drug you had complications with and then proceed from there. Echo will continue to watch his blood pressure checked his hemoglobin A1c and recheck after that. He appears to be stable and or 5 days out. Will continue tele Hypertension. Actually blood pressure not too bad. Patient's numbers at home have been pretty good I do not think that is a major issue will continue usual meds but not make any changes until we follow. Hyperlipidemia will need to start statins but will follow. GI prophylaxis not needed DVT prophylaxis will place on Lovenox. Code status full. Disposition. Hope will be discharged in the next 24-48 hours depending on findings. 40 minutes spent with patient reviewing chart discussing with ER doctor. Time Spent With Patient Critical Care time: I spent a total of [] minutes of critical care time on this patient's care today; this time is exclusive of procedural time.
--- NOTE | 2021-12-26 19:56 | DI.ECHO.S_ITS ---
[facility]---------+ [facility] +---------+ : : [address] [address] : : : : [id number] : : : : Phone: [phone]+ Echocardiogram Report + + :Name: DAO NOVA Study Date: 12/27/2021 Height: 68 in : :[facility] ReadingLocation: Weight: 185 lb : : Gender: Male BSA: 2.0 m2 : :: 1955 Age: 66 yrs BP: 140/95 mmHg: :Reason For Study: STROKE : :Ordering Physician: HAFSA, : :ROOSEVELT Performed By: Adelia Chambers : :Referring: ROOSEVELT PEREYRA : + + Interpretation Summary The patient was in normal sinus rhythm during the exam. The left ventricle is normal in size and wall thickness. There is no obvious LV thrombus. The ejection fraction is estimated to be 60-65%. The right ventricle is normal in size and function. There is no Doppler evidence for an interatrial shunt. Injection of contrast documented no interatrial shunt. No significant valvular pathology seen. The IVC is of normal diameter and collapses greater than 50% with a sniff. This suggests a low right atrial pressure of 3 mm Hg. Procedure: A two-dimensional transthoracic echocardiogram with color flow and Doppler was performed. The study quality was technically adequate. A saline contrast injection was performed to assess for cardiac shunting. The injection was performed through an intravenous line in the left arm. There is no prior echocardiogram noted for this patient. The patient was in sinus bradycardia with heart rates between 59-65 bpm during the exam. The patient was in normal sinus rhythm during the exam. Left Ventricle: The left ventricle is normal in size and wall thickness. There is no thrombus. The ejection fraction is estimated to be 60-65%. There are no focal wall motion abnormalities. Diastolic parameters suggest a relaxation abnormality of the left ventricle, consistent with probable normal filling pressures. Right Ventricle: The right ventricle is normal in size and function. Atria: The left atrial size is normal. Right atrial size is normal. There is no Doppler evidence for an interatrial shunt. Injection of contrast documented no interatrial shunt. Mitral Valve: There is mild mitral annular calcification. There is trace mitral regurgitation. Aortic Valve: The aortic valve is trileaflet. The aortic valve opens well. There is no aortic valve stenosis. No aortic regurgitation is present. Tricuspid Valve: The tricuspid valve is normal in structure and function. There is trace tricuspid regurgitation. Pulmonic Valve: The pulmonic valve leaflets are thin and pliable; valve motion is normal. There is trace pulmonic regurgitation. Great Vessels: The aortic root is normal size. The dimensions of the ascending aorta are normal. The IVC is of normal diameter and collapses greater than 50% with a sniff. This suggests a low right atrial pressure of 3 mm Hg. Pericardium/ Pleura There is no pericardial effusion. There is no pleural effusion. MMode/2D Measurements & Calculations LVIDd: 4.5 cm LVOT diam: 2.2 cm LVIDs: 3.1 cm Ao root diam: 3.4 cm FS: 30.7 % asc Aorta Diam: 3.3 cm IVSd: 0.82 cm Ao Arch Diam (Prox Trans): 3.2 cm LVPWd: 0.77 cm LV dhaliwal. diameter/BSA (cm/m^2): 2.3 LV sys. diameter/BSA (cm/m^2): 1.6 LA A2 area: 19.6 cm2 RA long axis: 4.7 cm LA A4 area: 16.5 cm2 RA area: 14.0 cm2 LA length (vol): 5.2 cm RA vol: 35.3 ml LA vol: 52.5 ml RA : 17.9 ml/m2 LA vol index: 26.6 ml/m2 IVC diam: 1.4 cm RVD1 (basal): 2.8 cm RVD2 (mid): 2.8 cm TAPSE: 1.6 cm Doppler Measurements & Calculations Ao V2 max: 118.1 cm/sec LVOT Max Willem: 82.0 cm/sec Ao V2 mean: 79.4 cm/sec LV V1 max P.7 mmHg Ao max P.6 mmHg LV V1 VTI: 17.1 cm Ao mean P.9 mmHg SONYA(I,D): 2.5 cm2 Ao V2 VTI: 24.8 cm SONYA(V,D): 2.6 cm2 sev ratio: 0.69 SONYA indexed to BSA (cm^2/m^2): 1.3 MV E max willem: 47.5 cm/sec PA V2 max: 124.7 cm/sec MV A max willem: 60.9 cm/sec PA V2 mean: 80.3 cm/sec MV E/A: 0.78 PA mean P.0 mmHg Med Peak E' Willem: 5.7 cm/sec PA pr(Accel): 44.7 mmHg E/E' med: 8.4 Lat Peak E' Willem: 9.5 cm/sec E/E' lat: 5.0 E/e' average: 6.7 MV dec time: 0.30 sec SV(LVOT): 63.1 ml Reading Physician:11:50 AM
[2021-12-27] VITALS: BP 118/79; PULSE 65; RESP 18; TEMP 37; O2SAT 96
[2021-12-27] MEDS: ACETAMINOPHEN 325 MG TABLET 650 MG PO (00:29)
[2021-12-27 04:00] VITALS: BP 131/83; PULSE 60; RESP 18; TEMP 36.3; O2SAT 98
[2021-12-27 06:00] LABS: BUN Creatinine Ratio 14.9 (6-22); Blood Urea Nitrogen 17 mg/dL (9-20); Carbon Dioxide 22 mmol/L (22-32); Chloride 106 mmol/L (98-107); Estimated Glomerular Filt Rate > 60 mL/min (>60); Glucose 151 mg/dL (80-110); HEMOLYSIS < 15 (0-50); Potassium 4.2 mmol/L (3.4-5.1); Sodium 137 mmol/L (137-145)
[2021-12-27 07:33] LABS: Hemoglobin A1C% w Est Avg Glu 7.3 % (4.0-6.0)
[2021-12-27 08:35] VITALS: BP 138/90; PULSE 67; RESP 20; TEMP 36.6; O2SAT 98
[2021-12-27 09:15] VITALS: BP 138/90
[2021-12-27] MEDS: LOSARTAN 50 MG TABLET 100 MG PO (09:15)
[2021-12-27] MEDS: ASPIRIN EC 325 MG TABLET PO (09:15)
[2021-12-27] MEDS: ENOXAPARIN 40 MG/0.4 ML SYRINGE SUBCUT (09:15)
--- NOTE | 2021-12-27 09:37 | OT.IP.EVAL ---
Current Diagnoses Cerebral infarction, unspecified (12/26/21) Past Medical History (Last Reviewed 12/26/21 @ 19:54 by Chandana Shelby MD) Hyperlipidemia Hypertension Stroke Occupational Therapy Inpatient Evaluation/Re-Eval M1 PT/OT-IP Prior Functional Status Start: 12/27/21 12:19 Freq: NEEDED Status: Active Protocol: Document 12/27/21 09:13 [facility] (Rec: 12/27/21 12:35 [facility] [id number]) Medical Review Prior Functional Status Communication independent Mobility and Gait independent with no devices used Activities of Daily Living and IADL's independent for ADL's, IADL's, and drives, currently in the process of tiling the bathroom floor . Social History Household Members spouse Living Arrangements House Number of Floors (Floors) Two Floors Number of Stairs To Enter/Railing? no steps to enter Home Environment Standard Height Toilet,Walk in Shower M2 OT-IP Current Condition Start: 12/27/21 12:19 Freq: Status: Active Protocol: Document 12/27/21 09:13 [facility] (Rec: 12/27/21 12:35 [facility] [id number]) Occupational Therapy Current Condition Current Condition Evaluation Date 12/27/21 Treatment Diagnosis CVA right occipital lobe Diagnosis Onset Date 12/26/21 M3 OT- IP Subjective and Pain Start: 12/27/21 12:19 Freq: Status: Active Protocol: Document 12/27/21 09:13 [facility] (Rec: 12/27/21 12:35 [facility] [id number]) OT- Subjective Occupational Therapy Visit Type Type Initial Evaluation Visit Start Time 09:13 Visit Stop Time 09:37 Total Visit Minutes 24 Occupational Therapy Visit Comments Patient Comments Pt agreed to get up and work with OT. Patient/Caregiver Goals TO go home. OT Pain Assessment Pain When Pain Assessed At Rest Pain Present Pain Present Denied Pain M4 OT- IP ADL's Start: 12/27/21 12:19 Freq: Status: Active Protocol: Document 12/27/21 09:13 [facility] (Rec: 12/27/21 12:35 [facility] [id number]) OT [id number] Comments OT Self-Feeding Comments Pt states able to do so with no issues earlier. OT ADL-Grooming General Evaluation Grooming Ability Independent OT ADL-Oral Care General Eval Oral Care Ability Independent OT ADL-Dressing General Eval Lower Body Dressing Ability Independent OT ADL-Toileting General Evaluation Toileting Ability Independent OT ADL-Bathing Comments OT Bathing Comments NOt performed. M5 OT- IP IADL's Start: 12/27/21 12:19 Freq: Status: Active Protocol: Document 12/27/21 09:13 [facility] (Rec: 12/27/21 12:35 [facility] [id number]) OT-Instrumental Activities of Daily Living Home Safety Awareness Awareness of Need for Assistance at Home Good Awareness Ability to Problem Solve Emergency Able to Problem Solve Situations Medication Management Medication Management No Deficits Identified Money Management Money Management No Deficits Identified Meal Preparation Meal Preparation No Deficits Identified Spin Tank Tender Spin Tank Tender No Deficits Identified Driving Driving Comments Pt aware to have provide supervision initially. M6 OT- IP Functional Cognition Start: 12/27/21 12:19 Freq: Status: Active Protocol: Document 12/27/21 09:13 [facility] (Rec: 12/27/21 12:35 [facility] [id number]) Cognitive Factors Limiting Selfcare Function Cognitive Ability Level of Alertness Alert Patient Orientation Name,Age,Birthday,Month,Date, Year,Day of Week,Place, Situation Attention Span Ability Capable of Focused Attention, Capable of Sustained Attention Ability to Follow Commands Able to Follow Multi-Step Commands Memory Description No Deficits Noted Safety Awareness No Deficits Noted Problem Solving Ability No deficits Noted Executive Function Ability No Deficits Noted Cognitive Comments Cognitive Assessment Comments Pt scored 63 seconds on [place] Making Part B which implies intact for cognition and no impairments for visual attention, speed of processing , task switching, executive functioning, and mental flexibility. Pt just needing initial education to look to the left or keep his head slightly turned to the left to help see better. OT- Vision and Hearing OT- Hearing Assessment OT- Hearing Assessment WFL OT- Vision Assessment Visual Acuity Glasses For Reading Visual Attentiveness WFL Occular Pursuits WFL Visual Convergence WFL Vision Assessment Comments Pt states vision slightly blurred on the left side and noted decreased vision for left upper quadrants for both eyes, L> R. M7 OT- IP Mobility and Balance Start: 12/27/21 12:19 Freq: Status: Active Protocol: Document 12/27/21 09:13 [facility] (Rec: 12/27/21 12:35 [facility] [id number]) OT-Transfer Assessment Sit to and From Stand Sit to and from Stand Independent Transfers Transfer Ability Independent Technique Transfer Destination Bed,Chair Devices Transfer Assistive Devices None Comments Mobility Comments Pt independent to move in the room on his own and also able to get up and down from the floor independently on his own . OT- Gait Assessment Gait Gait Assistance Required: Independent OT- Balance Assessment Sitting Balance and Reactions Static Sitting Balance Ability Normal Dynamic Sitting Balance Ability Normal Standing Balance and Reactions Static Standing Balance Ability Normal Dynamic Standing Balance Ability Normal M8 OT- IP Objective Assessments Start: 12/27/21 12:19 Freq: Status: Active Protocol: Document 12/27/21 09:13 [facility] (Rec: 12/27/21 12:35 [facility] [id number]) OT Gross Range of Motion Upper Extremity Range of Motion Assessment Within Functional Limits OT Strength Upper Extremity Strength Assessment Within Functional Limits OT- Coordination Assessment Upper Extremity Finger to Nose Test Within Functional Limits OT-Muscle Tone Assessment Muscle Tone WNL Yes OT Sensation Assessment Comments Summary Comments intact for sensation, slight increased time for kinesthesia for bilateral wrist/hands Edema Edema Absent M9 OT- IP Assessment and Plan Start: 12/27/21 12:19 Freq: Status: Active Protocol: Document 12/27/21 09:13 [facility] (Rec: 12/27/21 12:35 [facility] [id number]) OT Summary Assessment and Plan Potential Rehabilitation Potential Excellent Analytic Complexity at Evaluation Low Summary Progress Towards Goals Safe For Discharge Assessment Summary Pt low complexity and main barrier is slight decreased vision left upper quadrant L>R eye and educated on looking to the left or have his head slightly turned to the left in order to see better. Pt able to incorporate visual compensatory strategies well. Pt looking to go home when medically stable and has a supportive to assist for needs. Frequency of Treatment Frequency Of Treatment Discharge Discharge Recommendations OT Discharge Recommendations Home with Assistance Transportation Needs at Discharge Private Vehicle
--- NOTE | 2021-12-27 09:46 | PT-IP ANOTE ---
Physical therapy order received and chart reviewed. His stroke work-up was positive for right occipital CVA. His symptoms are vision changes. Pt was seen by Occupational Therapy this AM. Pt is independent with mobility and gait. No skilled physical therapy needs identified. OT will address vision changes. Will discharge physical therapy at this time.
--- NOTE | 2021-12-27 11:03 | ST.IPSCREEN ---
The pt was seated upright in chair when HAND BINDER CUTTER arrived. He reported some fuzziness in L eye but stated it had improved since onset. Pt was 100% intelligible with clear speech and reported no difficulty with speech or swallowing. Completed oral motor exam. Pt presented with symmetrical features at rest and in motion. Some shakiness in tongue during tongue protrusion and when tongue was at rest, though this did not appear to impact speech or swallowing. Tongue, lips, and jaw strength and ROM were WNL. Completed swallow screen with thin water through a straw cup. Pt exhibited no anterior loss of bolus and a/p propulsion and hyolaryngeal elevation and excursion WNL. Speech therapy is not indicated at this time as pt presents with speech and swallowing WNL.
--- NOTE | 2021-12-27 11:49 | CM.DANOTE ---
DCP: Case received, EMR reviewed and met with patient. Introduced self and role. Was able to obtain information regarding patient's baseline activity status prior to hospitalization. DCP assessment completed with information currently available. Patient is a 66 year old male who admitted yesterday afternoon to the care of the hospitalist team. PCP: Dr. Mccrary. Payer: confirmed: Medicare/[facility] 2nd policy. Patient came to the hospital via private vehicle. Patient was having blurry vision, some visual disturbances. Patient had been in [place], according to notes, visiting, and symptoms started. He did have an MRI which noted late cute to subacute right occipital lobe infarct. Met with patient in his room. Stated, he was feeling better, no visual disturbances at this time. Patient is hopeful to go home. At his baseline, he is independent, and resides here in [place] with spouse, Allegra. He worked with [facility], does not feel that he needs therapy at this time. P: DCP to continue to follow. Patient should be able to go home when deemed medically stable. Haylee Ocasio RN/Vapor Coater Discharge Planning/Care Management CM Discharge Assessment Start: 12/27/21 11:06 Freq: Status: Active Protocol: Document 12/27/21 11:07 (Rec: 12/27/21 11:11 [id number]) Discharge Planning Assessment Assigned Hostess Cashier Haylee Ocasio RN/Vapor Coater Advance Directives? No History Provided By Patient,Medical Record Prior Living Arrangements House Household Members spouse Type of transporation used prior to Drives own vehicle admit Independent with ADL's Yes Is patient alert and oriented? Yes Caregiver for Another No Barriers to Discharge Yes Discharge Plan Home Transportation Arrangement Spouse Referrals Initiated None needed Whiteboard Updated in Patient Room with Yes name and ext. # of Hostess Cashier Review Status In Process Next Review Type Continued Stay Review
--- NOTE | 2021-12-27 12:07 | PM.DS.1 ---
History of Present Illness History of Present Illness Date Patient Seen: 12/27/21 Time Patient Seen: 08:50 Chief complaint: Stroke work up- ref Dr Olsen Narrative: CC: visual field loss Patient is a 66-year-old who presented with decreased vision left eye.? Patient has a history of hypertension but otherwise unremarkable past medical history.? Apparently he was in [place] visiting his new grand son and noticed that he was dizzy and lightheaded.? He went out of the meeting he was in and sat down and it passed.? He had no headaches or chest pain or palpitations or other changes.? Patient noticed over the course of the next few hours that the left upper outer area of his vision was different.? He does could sees well.? But did not think much of it at that time.? He felt well.? 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 Olsen who saw him today was worried about a stroke referred to the emergency room.? Patient is otherwise had blood pressure control in the 130-140 over 80-90.? He has had no palpitations.? He has had a slight headache otherwise has been feeling well.? No other changes.? Feeling fine this morning ate and eliminated without issue persistent L upper visual field deficit echo wnl NSR with good EF will d/c to f/u as outpt Discharge Providers Provider Date of admission: 12/26/21 13:51 Discharge Date: 12/27/21 Primary care physician: Arun Mccrary MD Consults: 12/26/21 19:56 Consult to Discharge Planning Routine Comment: Consult to Occupational Therapy Evaluate & Treat Comment: Physician Instructions: Evaluate and treat Consult to Physical Therapy Evaluate & Treat Comment: Physician Instructions: Evaluate and Treat Consult to Speech Therapy Evaluate & Treat Comment: Physician Instructions: Evaluate and treat Discharge provider: Arun Mccrary MD Summary Hospital Course Discharge Diagnosis: CVA HTN DM HLD Hospital Course: visual field deficit persisted. vitals remained stable. otherwise no complaints. imaging confirmed stroke. Echo was wnl. will discharge home on rosuvastatin 40 and ASA 81. new diagnosis of diabetes based on A1c noted. Status at Discharge Cognitive/behavioral status at discharge: at baseline, oriented Functional status at discharge: independent ambulation Overall status at discharge: patient is back to baseline Exam Vital Signs (past 8 hours): - 12/27/21 08:35 12/27/21 09:15 Temperature 97.9 F Pulse Rate 67 Respiratory Rate 20 Blood Pressure 138/90 138/90 Pulse Oximetry 98 Oxygen Flow Rate 0 Oxygen Delivery Method Room Air Oxygen Flow Rate 0 Narrative Exam Narrative: sitting in chair yakking on phone Const General: cooperative, healthy appearing, comfortable and well developed [facility] Head: normal to inspection, normocephalic and atraumatic Eyes Other: persistent visual field deficit in upper L quadrant, ill defined, still able to read in central field of view, otherwise vision grossly intact to confrontation Resp Other: clear to auscultation bilaterally Cardio Other: regular rate and rhythm, S1/S2 GI Other: soft nontender nondistended normal bowel sounds Skin General: no rashes or lesions noted Neuro General: patient alert, patient awake, patient oriented x3, gait normal, moves all extremities, normal light touch, pain and propioception, no focal motor deficits, CN's II-XI intact bilaterally and deep tendon reflexes 2+ bilaterally Extrem General: normal to inspection and full ROM Psych Appearance: grossly normal and well kempt Objective Labs Result Diagrams: 12/26/21 13:50 12/27/21 05:18 Labs: Laboratory Results - last 24 hr 12/26/21 12/26/21 12/26/21 13:50 13:50 13:50 WBC 4.0 L RBC 4.80 Hgb 15.0 Hct 43.5 MCV 90.6 MCH 31.2 MCHC 34.5 RDW 13.8 Plt Count 162 Neut % (Auto) 64.8 Lymph % (Auto) 23.0 L [place] % (Auto) 9.0 Eos % (Auto) 2.5 Baso % (Auto) 0.7 Neut # (Auto) 2600 Lymph # (Auto) 900 L [place] # (Auto) 400 Eos # (Auto) 100 Baso # (Auto) 0 PT 10.3 INR 0.9 APTT 28 Sodium 140 Potassium 4.3 Chloride 105 Carbon Dioxide 28 BUN 17 Creatinine 1.19 Estimated GFR > 60 BUN/Creatinine Ratio 14.3 Glucose 114 H Hemoglobin A1c Calcium 9.2 Magnesium 2.1 Total Bilirubin 0.8 AST 35 ALT 38 Alkaline Phosphatase 49 Total Creatine Kinase 114 CK-MB (CK-2) 1.93 CK-MB (CK-2) Rel Index 1.7 Troponin I < 0.012 Total Protein 7.5 Albumin 4.7 Globulin 2.8 Albumin/Globulin Ratio 1.7 Triglycerides Cholesterol LDL Cholesterol, Calc HDL Cholesterol Urine Color Urine Appearance Urine pH Ur Specific Wood Urine Protein Urine Glucose (UA) Urine Ketones Urine Occult Blood Urine Nitrate Urine Bilirubin Urine Urobilinogen Ur Leukocyte Esterase Urine RBC Urine WBC Ur Squamous Epith Cells Urine Bacteria Ur Culture Indicated? U Opiates 300ng/mL cut Ur Oxycodone Screen Urine Methadone Screen Ur Barbiturates Screen U Tricyclic Antidepress Ur Phencyclidine Scrn Ur Amphetamines Screen U Methamphetamines Scrn Ur MDMA Scrn (Ecstasy) U Benzodiazepines Scrn Urine Cocaine Screen U Marijuana (THC) Screen SARS-CoV-2 (PCR) 12/26/21 12/26/21 12/26/21 13:50 13:50 14:03 WBC RBC Hgb Hct MCV MCH MCHC RDW Plt Count Neut % (Auto) Lymph % (Auto) [place] % (Auto) Eos % (Auto) Baso % (Auto) Neut # (Auto) Lymph # (Auto) [place] # (Auto) Eos # (Auto) Baso # (Auto) PT INR APTT Sodium Potassium Chloride Carbon Dioxide BUN Creatinine Estimated GFR BUN/Creatinine Ratio Glucose Hemoglobin A1c 7.4 H Calcium Magnesium Total Bilirubin AST ALT Alkaline Phosphatase Total Creatine Kinase CK-MB (CK-2) CK-MB (CK-2) Rel Index Troponin I Total Protein Albumin Globulin Albumin/Globulin Ratio Triglycerides 216 H Cholesterol 284 H LDL Cholesterol, Calc 198 H HDL Cholesterol 43 Urine Color Urine Appearance Urine pH Ur Specific Wood Urine Protein Urine Glucose (UA) Urine Ketones Urine Occult Blood Urine Nitrate Urine Bilirubin Urine Urobilinogen Ur Leukocyte Esterase Urine RBC Urine WBC Ur Squamous Epith Cells Urine Bacteria Ur Culture Indicated? U Opiates 300ng/mL cut Ur Oxycodone Screen Urine Methadone Screen Ur Barbiturates Screen U Tricyclic Antidepress Ur Phencyclidine Scrn Ur Amphetamines Screen U Methamphetamines Scrn Ur MDMA Scrn (Ecstasy) U Benzodiazepines Scrn Urine Cocaine Screen U Marijuana (THC) Screen SARS-CoV-2 (PCR) Negative 12/26/21 12/26/21 12/27/21 14:55 14:55 05:18 WBC RBC Hgb Hct MCV MCH MCHC RDW Plt Count Neut % (Auto) Lymph % (Auto) [place] % (Auto) Eos % (Auto) Baso % (Auto) Neut # (Auto) Lymph # (Auto) [place] # (Auto) Eos # (Auto) Baso # (Auto) PT INR APTT Sodium 137 Potassium 4.2 Chloride 106 Carbon Dioxide 22 BUN 17 Creatinine 1.14 Estimated GFR > 60 BUN/Creatinine Ratio 14.9 Glucose 151 H Hemoglobin A1c Calcium 9.0 Magnesium Total Bilirubin AST ALT Alkaline Phosphatase Total Creatine Kinase CK-MB (CK-2) CK-MB (CK-2) Rel Index Troponin I Total Protein Albumin Globulin Albumin/Globulin Ratio Triglycerides Cholesterol LDL Cholesterol, Calc HDL Cholesterol Urine Color Yellow Urine Appearance Clear Urine pH 6.0 Ur Specific Wood 1.015 Urine Protein Trace H Urine Glucose (UA) Negative Urine Ketones Negative Urine Occult Blood Negative Urine Nitrate Negative Urine Bilirubin Negative Urine Urobilinogen 0.2 Ur Leukocyte Esterase Trace H Urine RBC None seen Urine WBC 0-1/hpf Ur Squamous Epith Cells None seen Urine Bacteria None seen Ur Culture Indicated? Cult not indicated U Opiates 300ng/mL cut Negative Ur Oxycodone Screen Negative Urine Methadone Screen Negative Ur Barbiturates Screen Negative U Tricyclic Antidepress Negative Ur Phencyclidine Scrn Negative Ur Amphetamines Screen Negative U Methamphetamines Scrn Negative Ur MDMA Scrn (Ecstasy) Negative U Benzodiazepines Scrn Negative Urine Cocaine Screen Negative U Marijuana (THC) Screen Negative SARS-CoV-2 (PCR) 12/27/21 05:18 WBC RBC Hgb Hct MCV MCH MCHC RDW Plt Count Neut % (Auto) Lymph % (Auto) [place] % (Auto) Eos % (Auto) Baso % (Auto) Neut # (Auto) Lymph # (Auto) [place] # (Auto) Eos # (Auto) Baso # (Auto) PT INR APTT Sodium Potassium Chloride Carbon Dioxide BUN Creatinine Estimated GFR BUN/Creatinine Ratio Glucose Hemoglobin A1c 7.3 H Calcium Magnesium Total Bilirubin AST ALT Alkaline Phosphatase Total Creatine Kinase CK-MB (CK-2) CK-MB (CK-2) Rel Index Troponin I Total Protein Albumin Globulin Albumin/Globulin Ratio Triglycerides Cholesterol LDL Cholesterol, Calc HDL Cholesterol Urine Color Urine Appearance Urine pH Ur Specific Wood Urine Protein Urine Glucose (UA) Urine Ketones Urine Occult Blood Urine Nitrate Urine Bilirubin Urine Urobilinogen Ur Leukocyte Esterase Urine RBC Urine WBC Ur Squamous Epith Cells Urine Bacteria Ur Culture Indicated? U Opiates 300ng/mL cut Ur Oxycodone Screen Urine Methadone Screen Ur Barbiturates Screen U Tricyclic Antidepress Ur Phencyclidine Scrn Ur Amphetamines Screen U Methamphetamines Scrn Ur MDMA Scrn (Ecstasy) U Benzodiazepines Scrn Urine Cocaine Screen U Marijuana (THC) Screen SARS-CoV-2 (PCR) [facility] Medical History Hyperlipidemia Hypertension Stroke Social History household members: spouse Smoking Status: Never smoker alcohol intake: current Discharge Assessment & Plan Assessment and Plan Assessment: #CVA ED/telestroke agree do not believe there is any definitive intervention at this time.? Will start max statin and ASA 81. Imaging reveals occipital subacute infarct, high-grade stenosis of the right P1 and P2 segments with diminished and delayed opacification in most of the right PRODUCT MANAGEMENT ANALYST territory, mild multifocal atherosclerotic narrowing of the bilateral V4 segments, and mild atherosclerotic calcifications in the carotid bifurcations without hemodynamically significant stenosis. Echo showed NSR with normal EF. #diabetes mellitus, new diagnosis per intake testing. not on meds. will f/u outpatient and begin metformin #Hypertension stable does not appear to be a major issue will continue usual meds but not make any changes until outpt f/u #Hyperlipidemia starting max statin dispo: home to f/u with PCP as outpt code: full Discharge Plan Discharge Plan Patient Disposition: Home Discharge orders & Medications Prescriptions: New rosuvastatin 40 mg tablet 40 mg PO DAILY Qty: 30 0RF aspirin 81 mg tablet,chewable 81 mg PO DAILY Qty: 30 0RF Continued losartan 100 mg Tablet 100 mg PO DAILY Label Comments: patient does not recall when last dose taken hydrocodone-acetaminophen [[place]] 5-325 mg tablet 1 tab PO Q4H PRN (Reason: pain) Qty: 7 0RF Label Comments: no longer taking Follow up/Referrals: Arun Mccrary MD [Primary Care Provider] - Diet/Activity/Treatments Diet: Low-sodium and Low-cholesterol Visit Report/Discharge Packet Instructions: Strokes: Prevention (Alternative Therapy), Ischemic Stroke, DI for Stroke-Ischemic Discharge Data Primary Care Provider: Arun Mccrary
[2021-12-27 13:04] VITALS: BP 121/78; PULSE 71; RESP 18; TEMP 36.3; O2SAT 96
--- NOTE | 2021-12-27 15:15 | PC.NURSE ---
Discharge Note Patient A&O, VSS, RA, no complaints of pain/discomfort. Discharge packet reviewed with patient, all questions/concerns addressed. PIV/TELE discontinued. Patient able to dress self and pack all belongings. Reminded to clam picker prescriptions at preferred pharmacy. Patient accompanied downstairs to [facility].
== END 2021-12-27 15:00 | disposition home or self-care (01) | DRG 66 ==
LOC: ED 13:13 → AC 13:52
PROVIDERS: Admitting Provider Family Medicine; Emergency Provider Emergency Medicine; Family Provider Anesthesiology; PCP Family Medicine; Referring Provider Emergency Medicine; Visit Provider Family Medicine
DX: I63.9 Cerebral infarction, unspecified (principal); H54.62 Unqualified visual loss, left eye, normal vision right eye; I10 Essential (primary) hypertension; E78.5 Hyperlipidemia, unspecified; R29.700 NIHSS score 0; R29.701 NIHSS score 1; Z20.822 Contact with and (suspected) exposure to COVID-19
CPT/HCPCS: 36415; 70450; 70496; 70498; 70553; 80048; 80053; 80061; 80305; 81001; 82550; 82553; 83036; 83735; 84484; 85025; 85610; 85730; 87635; 93005; 93306; 97165; 97530; 99285; C9803; J1650; Q9967

== ENCOUNTER → 2022-03-08 09:09 | Outpatient (CLI) | payer MEDICARE, OTHER, SELFPAY ==
[2021-12-26 15:27] VITALS: BMI 28.1
--- NOTE | 2022-03-21 17:57 | DIAB.MNT ---
Initial Diabetes Medical Nutrition Therapy Assessment Name: Sae Lopez Date: 03/08/22 Time: [id number] Dx: Type II Diabetes Provider: Demetra Khanna presents today for initial visit. Recent HgA1c of 7.3%. During our visit he states he thought he had prediabetes, not diabetes. We discussed this in detail today. Reports he has been very sleepy, may drift off if not active. States he has h/o keto diet. Interested in DSME classes, but he cannot make it to the next two nutrition classes. Unsure of FH of DM. 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 Self-Monitoring Blood Glucose: Reports he has checked BG some in January. All in goal. Does not have an rx for meter or supply reported. Date Pre Post Pre Post Pre Post HS 01/11 103 7 118 84 7/01/19 91 01/26 142 Diabetes Medications: None Pertinent Labs: 12/2021 7.3% HgA1c Past Medical History: (Last Reviewed 12/26/21 @ 19:54 by Chandana Shelby MD) Hyperlipidemia Hypertension Stroke December 2019 Nutrition Rx: Carbohydrates: Meal:45g Snack:15-30g Nutrition Diagnosis: - Physical inactivity r/t <150 min activity per day aeb pt report - Nutrition and food related knowledge deficit r/t newly dx DM aeb hgA1c and referral Intervention: This participant was very receptive. Provided appropriate educational handouts. Discussed the following topics: Completed intake assessment. Discussed barriers to care. Pathophysiology of T2DM and prediabetes HgA1c, its correlation to blood glucose numbers, and rationale for goal Self-monitoring, how often, and when to check. Suggested checking at different times to evaluate meals Plate Method, impact of macronutrients on blood sugar, meal timing, carbohydrate counting, pairing macronutrients and spreading out carbohydrates for better blood glucose management Recommended servings for carbohydrates at meals and snacks Role of physical activity and following provider guidelines for safety Created SMART goals for patient self-care and success. Goals: Discuss SMBG supplies with PCP Log BG 1-2x per day Schedule a 3p snack to avoid grazing Start walking Follow-up: NIGEL ANNA follow-up in 3-4weeks Janee Barone RDN, WILFRIDO Certified Diabetes Care and Advertisement Distributor P: [phone] Thank you for this referral
== END ==
PROVIDERS: Family Provider Anesthesiology; PCP Family Medicine; Referring Provider Family Medicine; Visit Provider Family Medicine
DX: E11.9 Type 2 diabetes mellitus without complications (principal); Z71.3 Dietary counseling and surveillance
CPT/HCPCS: 97802

== ENCOUNTER → 2022-04-25 15:08 | Outpatient (CLI) | payer MEDICARE, OTHER, SELFPAY ==
[2021-12-26 15:27] VITALS: BMI 28.1
--- NOTE | 2022-05-05 16:01 | DIAB.FU ---
Follow-up Diabetes Education Assessment Name: Sae Lopez Date: 04/25/22 Time: 320-4p Dx: Type II Diabetes Provider: Demetra Khanna here for DM follow-up. States he wants to focus on only eating when hungry. Some interest in intermittent fasting. States he currently eats a low carb breakfast around 10-11a, and then maybe a snack in the afternoon. Eating veggies daily but room for improvement. Been checking some SMBG. Has rx for Metformin 500mg daily. 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 Has not started walking yet. Self-Monitoring Blood Glucose: Date Pre Post Pre Post Pre Post HS Diabetes Medications: 500mg Metformin Pertinent Labs: 12/2021 7.3% HgA1c Past Medical History: (Last Reviewed 12/26/21 @ 19:54 by Chandana Shelby MD) Hyperlipidemia Hypertension Stroke December 2019 Intervention: This participant was very receptive. Provided appropriate educational handouts. Discussed the following topics: Recent blood sugar results and trends Medication management, how/when to take Metformin Review of general nutrition recommendations and current intake Discussed different approaches to nutrition intake Discouraged fad diets but encouraged balanced nutrition and hunger/fullness awareness Physical activity plan and impact on blood sugars Created SMART goals for patient self-care and success. Goals: Discuss SMBG supplies with PCP- met Log BG 1-2x per day- improved Schedule a 3p snack to avoid grazing- met Start walking - in progress take Metformin HS- new Follow-up: NIGEL ANNA follow-up scheduled after next HgA1c. Offered sooner follow-up, but Jey would like to postpone until next lab. Janee Barone, NIGEL, WILFRIDO Certified Diabetes Care and Labor Crew Supervisor P: [phone] Thank you for this referral
== END ==
PROVIDERS: Family Provider Anesthesiology; PCP Family Medicine; Referring Provider Family Medicine; Visit Provider Family Medicine
DX: E11.9 Type 2 diabetes mellitus without complications (principal); Z79.84 Long term (current) use of oral hypoglycemic drugs; Z71.3 Dietary counseling and surveillance
CPT/HCPCS: G0108

== ENCOUNTER → 2022-05-18 09:03 | Outpatient (CLI) | payer MEDICARE, OTHER, SELFPAY ==
[2021-12-26 15:27] VITALS: BMI 28.1
[2022-05-18 12:05] LABS: COVID19 -Nasal RAPID Negative (Negative)
== END ==
PROVIDERS: Family Provider Anesthesiology; PCP Family Medicine; Visit Provider Surgery
DX: Z20.822 Contact with and (suspected) exposure to COVID-19 (principal); Z01.812 Encounter for preprocedural laboratory examination
CPT/HCPCS: 87635; C9803

== ENCOUNTER 2022-05-19 09:32 | Day surgery (SDC) | payer MEDICARE, OTHER, SELFPAY ==
[2021-12-26 15:27] VITALS: BMI 28.1
[2022-05-19] MEDS: LACTATED RINGERS 1,000 ML 42 ML IV (09:47)
[2022-05-19 10:09] VITALS: BP 138/84; PULSE 69; RESP 16; TEMP 36.6; O2SAT 100; BMI 27.3
--- NOTE | 2022-05-19 11:51 | P.HP_ITS ---
History of Present Illness History of Present Illness Chief complaint: Colonoscopy Narrative: Mr. Lopez presents today for a screening colonoscopy his last colonoscope was done in [address] Black at [facility] there were some polyps were biopsied but they came back as hyperplastic. Therefore he was recommended to have a 10 year follow-up. He is due for this in 2019 and is overdue now. But he has no family history of colon cancer no bleeding from below no changes in his bowel movements or alarming symptoms. Patient History Medical History Hyperlipidemia Hypertension Stroke Family & Social History Social History: household members spouse Tobacco & Substance use: Smoking Status Never smoker alcohol intake current alcohol intake frequency 0-2 drinks per day Substance Use Type does not use Meds Home Medications and Allergies Home Medications Medication Instructions Recorded Confirmed Type losartan 100 mg tablet 100 mg PO DAILY 12/11/17 05/19/22 History aspirin 81 mg chewable tablet 81 mg PO DAILY #30 tabs 12/27/21 05/19/22 Rx rosuvastatin 40 mg tablet 40 mg PO DAILY #30 tabs 12/27/21 05/19/22 Rx metformin 500 mg tablet,extended 500 mg PO DAILY 05/19/22 05/19/22 History release 24 hr Allergies Allergy/AdvReac Type Severity Reaction Status Date / Time No Known Drug Allergies Allergy Verified 05/19/22 09:51 Exam Vital Signs (past 8 hours): - 05/19/22 10:09 Temperature 97.9 F Pulse Rate 69 Respiratory Rate 16 Blood Pressure 138/84 Pulse Oximetry 100 Oxygen Delivery Method Room Air Oxygen Delivery Method Room Air Const General: cooperative, healthy appearing and comfortable Eyes General: appearance normal, both eyes and all related structures Resp Effort & Inspection: normal respiratory effort and able to speak in complete sentences Cardio Pulses: radial pulses present GI Palpation: soft and No tender Assessment & Plan Assessment and plan (1) Screening for colon cancer: Status: Acute Plan I discussed the risks benefits and alternatives including but not limited to perforation of the colon and an incomplete colonoscopy requiring a repeat or further imaging with Mr. Lopez he understands and like to proceed Time Spent With Patient Critical Care time: I spent a total of [] minutes of critical care time on this patient's care today; this time is exclusive of procedural time.
[2022-05-19 12:33] VITALS: BP 108/71; PULSE 64; RESP 13; TEMP 36.4; O2SAT 96
[2022-05-19 12:38] VITALS: BP 104/71; PULSE 63; RESP 20; O2SAT 97
[2022-05-19 12:43] VITALS: BP 116/74; PULSE 67; RESP 28; O2SAT 98
--- NOTE | 2022-05-19 12:53 | PM.OP.COLON ---
Procedure & Clinicians Study performed: Colonoscopy Same procedure as scheduled: Yes Indications: Screening 10 year follow-up Surgeon: Lauren Fournier Procedure Notes Procedure in detail: Patient taken to the endoscopy suite and placed in a left lateral decubitus position time-out was performed with the help of anesthesia provider conscious sedation was induced. Digital rectal exam was performed and normal. C scope was introduced into the anus and advanced through to the cecum. Photograph of the appendiceal orifice was obtained. Withdrawal time was 11 minutes. No polyps were seen. Mucosa looked normal follow-up 10 years. Specimen(s): none sent Complications: none Post-procedure Recommendations: Colonoscopy in 10 years
== END 2022-05-19 13:09 | disposition home or self-care (01) ==
PROVIDERS: Family Provider Anesthesiology; PCP Family Medicine; Referring Provider Surgery; Visit Provider Surgery
PROC: 0DJD8ZZ Inspection of Lower Intestinal Tract, Via Natural or Artificial Opening Endoscopic (ICD-10-PCS; CPT 45378; principal; 2022-05-19 10:45)
DX: Z12.11 Encounter for screening for malignant neoplasm of colon (principal); Z86.010 Personal history of colon polyps
CPT/HCPCS: G0105; J2704

== ENCOUNTER → 2022-07-12 15:18 | Outpatient (CLI) | payer MEDICARE, OTHER, SELFPAY ==
[2021-12-26 15:27] VITALS: BMI 28.1
--- NOTE | 2022-07-19 15:38 | DIAB.FU ---
Follow-up Diabetes Education Assessment Name: Sae Lopez Date: 07/12/21 Time: 330-4p Dx: Type II Diabetes Provider: Demetra Khanna presents today for diabetes follow-up. Reports DM has been increased to 1000mg per day. States he is unclear if this should be taken together or 500mg BID. Has been taking Metformin 500mg HS since last visit. Stage of change seems to be preparation to action. Continues on very low carb diet with long periods of fasting. Physical Activity: has not started walking Self-Monitoring Blood Glucose: No meter or log book for review. Reports elevated FBG today 149 mg/dl. Often >130 FBG, mid day 150-160 mg/dL. States he has not been checking BG more recently. Diabetes Medications: 1000 mg Metformin daily Pertinent Labs: 12/2021 7.3% HgA1c Past Medical History: (Last Reviewed 12/26/21 @ 19:54 by Chandana Shelby MD) Hyperlipidemia Hypertension Stroke December 2019 Intervention: This participant was very receptive. Provided appropriate educational handouts. Discussed the following topics: Recent blood sugar results and trends Medication management: review rx label, though may be 500mg BID Physical activity plan and impact on blood sugars BG goals and risk of complication with hyperglycemia Created SMART goals for patient self-care and success. Goals: Start walking - in progress take Metformin HS- met Walk 30 minutes at least 1x per week- new Send BG in 3 weeks- new Check Metformin label for instructions- new Follow-up: NIGEL ANNA follow-up recommended in 3-4 weeks. he would like to wait again until after next PCP visit in October. Encouraged him to send BG for review in 3 weeks in the meantime. Janee Barone RDN, WILFRIDO Certified Diabetes Care and Dedicated Truck Driver P: [phone] Thank you for this referral
== END ==
PROVIDERS: Family Provider Anesthesiology; PCP Family Medicine; Referring Provider Family Medicine; Visit Provider Family Medicine
DX: Z79.84 Long term (current) use of oral hypoglycemic drugs (principal); Z71.3 Dietary counseling and surveillance
CPT/HCPCS: G0108

== ENCOUNTER → 2024-06-17 19:01 | Outpatient (CLI) | payer MEDICARE, OTHER, SELFPAY ==
[2021-12-26 15:27] VITALS: BMI 28.1
--- NOTE | 2024-06-17 19:04 | DI.MRI.S_ITS ---
PROCEDURE: MR HUMERUS RT WO CON INDICATIONS: Strain of muscle, fascia and tendon of long head o TECHNIQUE: Noncontrast coronal and sagittal T1 spin echo and STIR; axial T1 spin echo and T2 fast spin echo with fat saturation through the right humerus COMPARISON: None. FINDINGS: Image quality: Excellent. Bones: Mild degenerative change of the acromioclavicular joint. Moderate degenerative changes of the glenohumeral joint. No acute fracture. Soft tissues: The supraspinatus and infraspinatus tendon is grossly unremarkable. The subscapularis tendon is grossly intact. The proximal extra-articular biceps tendon is intact. There is full-thickness tear of the distal biceps tendon, incompletely evaluated. The insertion of the biceps tendon at the radial tuberosity is excluded from field of view. The torn biceps tendon is coiled and retracted to the level of the distal humeral diaphysis (series 5, image 20). Associated small amount of hematoma. There is a T2 hyperintense lesion in the lower pole of the right kidney, measuring 2.3 cm, incompletely evaluated. IMPRESSION: 1. Full-thickness tear of the distal biceps tendon with tendon retraction to the level of the distal humeral diaphysis. Please note this is incompletely evaluated given the radial tuberosity is excluded from field of view. 2. 2.3 cm T2 hyperintense lesion in the right kidney, incompletely evaluated. Recommend further evaluation with renal ultrasound. Dictated by: Catherine Vee M.D. on 06/18/2024 at 10:47 Approved by: Catherine Vee M.D. on 06/18/2024 at 10:57
== END ==
PROVIDERS: Family Provider Anesthesiology; PCP Family Medicine; Referring Provider Family Medicine; Visit Provider Family Medicine
DX: S46.111A Strain of muscle, fascia and tendon of long head of biceps, right arm, initial encounter (principal); N28.9 Disorder of kidney and ureter, unspecified; X58.XXXA Exposure to other specified factors, initial encounter
CPT/HCPCS: 73218